=== PATIENT | male | born 1975 | race Caucasian/White ===

== ENCOUNTER 2016-03-06 21:46 | Emergency (ER) | payer OTHER ==
[~2016-03-06] VITALS: Ht 190.5 cm; Wt 120.5 kg
[2016-03-06 21:53] VITALS: BP 158/99; PULSE 97; RESP 18; O2SAT 96
--- NOTE | 2016-03-06 22:09 | ED.REPORT ---
HPI-General Illness Date of Service Mar 06, 2016 ED Provider: Buck Jimenez MD Patient is a 40 year old male who presents to the ED after he developed chest palpitations and an irregular heart beat for 3 hours prior to arrival. On arrival to the ED, the patient was thought to be in atrial fibrillation during triage. However his palpitations have resolved on initial intake and he states his symptoms have been intermittent since intake. He reports associated cough and shortness of breath when he experiences the palpitations. The patient states that he has symptoms like this previously, but they are usually brief. These symptoms will sometimes happen as frequently as every day, but usually only once a week. He states that these episodes have occurred since he was young. He states that his heart will "flutter for awhile", but then return to a regular beat. He counted the rate on home blood pressure monitor at about 120 and variable. Patient denies chest pain, dyspnea on exertion, diaphoresis, nausea, fever, chills, vomiting, diarrhea, constipation, or other symptoms. He denies a history of hypertension, heart disease, or diabetes mellitus. Nursing Notes Stated Complaint: IRREGULAR HEARTBEAT Chief Complaint: Dysrhythmia/Cardiac Nursing Notes Reviewed: Yes Allergies: Coded Allergies: Penicillins (Verified Allergy, Mild, HIVES, 12/15/08) latex (Verified Adverse Reaction, Mild, SWELLING, 12/15/08) Uncoded Allergies: BEE STINGS (Allergy, Unknown, 09/02/14) General Time Seen by MD: 22:08 Chief Complaint Other (chest palpitations) Hx Obtained From: Patient Arrived By: Walk-in Sudden in Onset?: No Onset Occurred: 1 - 4 hours ago Symptom Duration: Intermittent Severity: Current: No pain currently Severity: Maximum: No pain Recent Healthcare: No recent doctor visit, No recent hospitalization Similar Sx Previous: Yes Past Medical History Past Medical History Known allergy to bee stings, otherwise healthy Denies: Coronary artery disease, Diabetes mellitus, Hypertension Past Surgical History None Smoking History Current Some Day Smoker Social History Other Social History: Good social support, Local resident Ambulatory Status Independent Review of Systems Full Review of Systems Constitutional: Denies: Chills, Fever Respiratory: Reports: Non-productive cough, Shortness of breath, Denies: Dyspnea on exertion Cardiovascular: Reports: Palpitations, Denies: Chest pain GI: Denies: Diarrhea, Nausea, Vomiting Skin: Denies Diaphoresis Complete sys rev & neg: except as marked. Physical Exam Vital Signs Vital Signs Date Time Temp Pulse Resp B/P Pulse Ox O2 Delivery O2 Flow Rate FiO2 03/07/16 00:09 90 138/101 97 Room Air 03/06/16 23:12 98 28 145/109 97 Room Air 03/06/16 21:53 97 18 158/99 96 Room Air Initial VS: Reviewed Head / Eyes: Atraumatic, Normocephalic, PERRL ENT: Mucous membranes moist, Conjunctiva normal, No scleral icterus Neck: Supple, Full range of motion Extremities: Vascular intact, Neuro intact, No swelling Skin: Warm, Dry, No cyanosis Neurologic: Alert, Oriented, Nonfocal Psychiatric: Mood/affect normal, Behavior normal, Normal thought content General/Constitutional: Awake, Alert, No acute distress, Well hydrated Appearance / Presentation: Positive: Obese Respiratory / Chest: Breath sounds NL, Breath sounds = bilat, No respiratory distress, No rales, No rhonchi, No wheezing Cardiovascular: Heart rate NL, Regular rhythm, Heart sounds NL, No gallop, No murmurs Interpretation & Diagnostics Lab Results Interpretation Result Diagram: 03/06/16221903/06/162219 Test 03/06/16 22:20 White Blood Count 6.7th/mm3 (3.8-10.1) Red Blood Count 5.66mil/mm3 (4.40-5.80) Hemoglobin 16.3g/dL (13.8-17.2) Hematocrit 48.0% (41.0-50.0) Mean Corpuscular Volume 84.8fL (81-100) Mean Corpuscular Hemoglobin 28.8pg (27.0-35.0) Mean Corpuscular Hemoglobin Concent 34.0% (32.0-37.0) Red Cell Distribution Width 13.5% (12.3-15.4) Platelet Count 265bil/L (150-400) Neutrophils (%) (Auto) 56.9% (40-74) Lymphocytes (%) (Auto) 30.6% (14-46) Monocytes (%) (Auto) 9.8% (4-12) Eosinophils (%) (Auto) 2.5% (0-5) Basophils (%) (Auto) 0.1% (0-3) Prothrombin Time 10.3sec (8.1-12.5) Prothromb Time International Ratio 0.96ratio Sodium Level 141mEq/L (134-144) Potassium Level 4.3mEq/L (3.5-5.2) Chloride Level 105mEq/L (97-108) Carbon Dioxide Level 24mmol/L (18-29) Blood Urea Nitrogen 25mg/dL (6-20) Creatinine 1.00mg/dL (0.76-1.27) Estimat Glomerular Filtration Rate 88mL/min (>59) Glucose Level 87mg/dL (60-99) Calcium Level 9.4mg/dL (8.5-10.1) Magnesium Level 2.2mg/dL (1.6-2.6) Total Bilirubin 0.2mg/dL (0.0-1.2) Aspartate Amino Transf (AST/SGOT) 22U/L (0-50) Alanine Aminotransferase (ALT/SGPT) 27U/L (0-44) Alkaline Phosphatase 81U/L (25-150) Troponin T 0.010ug/L (0.0-0.011) Pro-B-Type Natriuretic Peptide 25.04pg/mL (0-86) Total Protein 7.5g/dL (6.4-8.4) Albumin 4.3g/dL (3.4-5.0) Thyroid Stimulating Hormone (TSH) 1.590uIU/mL (0.450-4.500) Free Thyroxine 1.39ng/dL (0.82-1.77) ECG Interpretation ECG Interpretation: Sinus tachycardia, Rate 103 Time: 22:16 Interpreted by: ED physician X-Ray Chest Interpretation Chest Xray Interpretation: Impression: No acute process. View: Portable Interpretation / Wet Read by: Wet read ED physician Re-Eval/Medical Decision Med Decision/Clinical Course 40-year-old generally in good health presents with intermittent palpitations that are sustained. He recorded the episode today at about 120 230. This suggests this is perhaps paroxysmal atrial fibrillation. It may be PSVT. No abnormal rhythms were captured in two hours of monitoring here. He is referred to Dr. Finn for further evaluation. He will require Holter monitor. His electrolytes were all within normal limits. He does not consume caffeine. No other immediately remediable causes identified. Thyroid functions normal. Discharged in stable condition. Source of Hx: Old records Time of Eval: 23:58 Patient Status: Condition improved Re-Evaluation/Progress Note: Rechecked the patient to discuss the results of his labs, EKG, and chest x-ray. The patient's arrhythmia was not identified while in the ED today. He was given referral for PCP and should follow-up with cardiology for Holter monitor. Patient understands and agrees with the plan to be discharged home. Discharge instructions and follow-up discussed. All questions were addressed. Return to the ED warnings given. Counseled Regarding: Diagnosis, Lab results, Need for follow-up, When/why to return to ED Discharge & Departure Primary Impression: Atrial arrhythmia Disposition: Home Discharge Condition All VS Reviewed: Yes Condition: Stable Patient Instructions: Atrial Fibrillation (ED), Palpitations (ED), Supraventricular Tachycardia (ED) Additional Instructions: We have not observed the arrhythmia while you were here. This could be paroxysmal atrial fibrillation, or SVT. You need follow-up with a local physician to arrange a Holter monitor test over a day or several days at home. If you have sustained rapid rhythms, return here any time. Limit your caffeine. Return for chest pain shortness of breath or any other new and concerning symptoms. Referrals: Tad Finn MD Attestation Portions of this note were transcribed by Ольга Dominguez. I, Dr. Jimenez personally performed the history, physical exam and medical decision-making; I reviewed and confirmed the accuracy of the information in the transcribed note. Signed by: Carly Fatima, 03/07/2016 0002 copies to: Tad Finn MD, Christopher W MD Mar 06, 2016 22:09 Ольга Dominguez Mar 06, 2016 22:17
[2016-03-06 22:28] LABS: BASOPHILS % (AUTO) 0.1 % (0-3); EOSINOPHILS % (AUTO) 2.5 % (0-5); MONOCYTES % (AUTO) 9.8 % (4-12); Mean Corpuscular Hemoglobin 28.8 pg (27.0-35.0); Mean Corpuscular Volume 84.8 fL (81-100); NEUTROPHILS % (AUTO) 56.9 % (40-74); Platelet Count 265 bil/L (150-400)
[2016-03-06 22:46] LABS: INR 0.96 ratio
[2016-03-06 22:53] LABS: TROPONIN T 0.01 ug/L (0.0-0.011)
[2016-03-06 23:04] LABS: Magnesium 2.2 mg/dL (1.6-2.6)
[2016-03-06 23:12] VITALS: BP 145/109; PULSE 98; RESP 28; O2SAT 97
[2016-03-07 00:09] VITALS: BP 138/101; PULSE 90; O2SAT 97
--- NOTE | 2016-03-07 09:05 | DRSVH ---
PROCEDURE: X-RAY CHEST ONE VIEW, PORTABLE ([id number]) INDICATIONS: palpitations TECHNIQUE: One view of the chest was acquired. COMPARISON: [facility], CR, CHEST 2VW, 06/29/2009, 18:27. FINDINGS: Surgical changes and devices: None. Lungs and pleura: No pleural effusions or pneumothorax. Lungs are clear. Mediastinum: Mediastinal contours appear normal. Heart size is normal. Bones and chest wall: No suspicious bony lesions. Overlying soft tissues appear unremarkable. IMPRESSION: No acute cardiopulmonary disease. Dictated by: Pedro RIVERA Interpreted: Wendy Priest MD on 03/07/2016 at 9:05 Transcribed by: RAMESH on 03/07/2016 at 9:05 Approved by: Wendy Priest M.D. on 03/07/2016 at 16:09
== END 2016-03-07 00:10 | disposition home or self-care (01) ==
LOC: SED 21:46
DX: I49.9 Cardiac arrhythmia, unspecified (principal); R00.2 Palpitations; F17.200 Nicotine dependence, unspecified, uncomplicated; Z88.0 Allergy status to penicillin